=== PATIENT | male | born 1940 | race Caucasian/White ===

== ENCOUNTER 2017-07-04 06:39 | Observation (INO) ==
--- NOTE | 2017-07-03 21:48 | Discharge Summary ---
<Bryon Santos - Last Filed: 07/04/17 07:56> Date of Encounter: 07/04/17 - Discharge Diagnosis (1) Rotator cuff arthropathy Priority: Primary Status: Chronic Qualifiers: Laterality: right Qualified Code(s): M12.811 - Other specific arthropathies , not elsewhere classified, right shoulder (2) Status post total replacement of right shoulder Priority: Primary Status: Acute (3) HTN (hypertension) Priority: Secondary Status: Chronic Qualifiers: Hypertension type: essential hypertension Qualified Code(s): I10 - Essential (primary) hypertension (4) Obesity Priority: Secondary Status: Chronic Qualifiers: Obesity type: due to excess calories Obesity classification: adult class 1 (BMI 30 ? 34.9) Serious obesity comorbidity presence: without serious comorbidity Body mass index: BMI 34.0-34.9 Qualified Code(s): E66.09 - Other obesity due to excess calories - Discharge Medications Home Medications: OxyCODONE Immed Rel [Roxicodone 5 MG] 5 - 10 mg PO Q6HR PRN #40 tablet 07/03/17 [Rx] Acetaminophen [Tylenol] 325 mg PO Q3D 07/04/17 [History] Aspirin [Ecotrin] 325 mg PO Q3D 07/04/17 [History] Lisinopril [Zestril] 20 mg PO DAILY 07/04/17 [History] Multivitamin [One Daily Essential] 1 tab PO DAILY 07/04/17 [History] Naproxen Sodium [Aleve] 220 mg PO Q3D 07/04/17 [History] hydroCHLOROthiazide [Hydrochlorothiazide] 25 mg PO DAILY 07/04/17 [History] Allergies/Adverse Reactions: 3 Allergy/AdvReac Type Severity Reaction Status Date / Time No Known Allergies Allergy Verified 07/04/17 07:26 Primary care physician: Tanner Kenyon - Patient Status Disposition: Home Health Service Condition: Good - Discharge Instructions Follow Up With: Tanner Price, [employer] MA[employer]TENA[employer]CE [employer]CH[employer]IC [Primary Care Provider] - Additional Instructions: Discharge Instructions: Total Shoulder Please call [facility] ([phone]), your Primary Care Physician, or report to the Emergency Room if you have any of the following symptoms: Nausea, vomiting, fever greater that 101.5, swelling, chest pain, shortness of breath, increased pain/redness/drainage/odor for your incision site, numbness/ tingling, or any other concerning symptoms. ACTIVITY: Always keep your arm in the sling. Do not raise your arm away from your body. Do not use your arm to help with getting in or out of bed. No weight bearing permitted. Only perform those exercises given to you by your therapist. MEDICATIONS: Upon discharge resume your home medications. Take all the medications as prescribed. Take a stool softener if taking narcotic pain medications. Stool softeners are only effective if you drink enough fluids. Drink 6-8 glass of water or fluids a day, unless this is not allowed for another health problem. Despite using stool softeners, if you haven't had a bowel movement in 3 days, please switch to a gentle laxative. Gentle laxatives are sold over the counter. You should have a bowel movement within 24 hours, if not call the office. You will be discharged from the hospital with a prescription for pain medication. You are encouraged to decrease the use of narcotic pain medication as tolerated. Should you require a refill, please call the office. [facility] prescribes narcotic pain medication for only 4-6 weeks after surgery. If you require pain medication beyond this time period, you may be referred to your Primary Care Physician or to the Pain Clinic for further evaluation. Plan ahead for refills on pain medication as many narcotics either need to be picked up at the office or mailed. It is best to call 48-72 hours in advance of needing a prescription refill so you don't run out of medication. To help control the post-operative pain, you may take NSAIDs (Aleve,Advil, Motrin, Ibuprofen, Naprosyn) or Tylenol as prescribed on the bottle in addition to the pain medication. WOUND CARE: Leave the dressing on for 7-10 days. You may change the dressing if it becomes saturated greater than 50%. Do not get the dressing wet at anytime. Wash your hands with antibacterial soap, rinse and dry prior to any wound care. If you have von the visiting nurse or rehab facility can remove the stapes 10-14 days after surgery and place steri-strips across the wound. Leave the steri-strips in place until they fall off on their own. You may let water from the shower run on top of the steri-strips. If you do not have a visiting nurse or rehab facility, you will need to return to the office at 10-14 days for the von to be removed. If you have itching or redness around the dressing call the office. FOLLOW-UP: Please follow up with your surgeon in the orthopedic clinic, as scheduled - Hospital Course Hospital course: Mr. Liu is a 76 year old male - Time Spent with Patient Total time spent providing and/or coordinating discharge services: <Justine Peters - Last Filed: 07/15/17 13:01> Date of Encounter: 07/04/17 Time of Encounter: 13:01 - Discharge Diagnosis (1) Rotator cuff arthropathy Priority: Primary Status: Chronic Qualifiers: Laterality: right Qualified Code(s): M12.811 - Other specific arthropathies , not elsewhere classified, right shoulder (2) Status post total replacement of right shoulder Priority: Secondary Status: Acute (3) HTN (hypertension) Priority: Secondary Status: Chronic Qualifiers: Hypertension type: essential hypertension Qualified Code(s): I10 - Essential (primary) hypertension (4) Obesity Priority: Secondary Status: Chronic Qualifiers: Obesity type: due to excess calories Obesity classification: adult class 1 (BMI 30 ? 34.9) Serious obesity comorbidity presence: without serious comorbidity Body mass index: BMI 34.0-34.9 Primary care physician: Tanner Kenyon - Patient Status Functional capacity at discharge: independent ambulation Overall status at discharge: patient is back to baseline - Hospital Course Hospital course: Mr. Liu is a 76 year old male - Time Spent with Patient Total time spent providing and/or coordinating discharge services:
[2017-07-04] MEDS ORDERED: CeFAZolin Pre 2,000 MG/100 ML 2,000 MG/100 ML BAG IVPB ONE (07:27)
[2017-07-04] MEDS ORDERED: Lidocaine -MPF 1% 2 ML VIAL ID ONE (07:27)
[2017-07-04] MEDS ORDERED: Ringers Solution, Lactated 1,000 ML IVC SCH ×2 (07:30→10:56)
[2017-07-04] MEDS ORDERED: Lidocaine -MPF 4% 5 ML AMPUL ONE (07:51)
[2017-07-04] MEDS ORDERED: Ondansetron 4 MG/2 ML VIAL ONE (07:55)
[2017-07-04] MEDS ORDERED: Lidocaine -MPF 2% 2 ML VIAL ONE (07:55)
--- NOTE | 2017-07-04 07:56 | History & Physical Report ---
Date of Encounter: 07/04/17 Time of Encounter: 07:56 24 Hour HP Update - Instructions Instructions: If the History and Physical is less than 30 days old and was completed prior to A.M. admission and or procedure and has NOT been updated on calendar day of procedure please complete this update prior to performing procedure. - Update Patient reports changes in Medical Condition: No Changes in examination, assessment, or condition: No Changes in Medication: No Preop tests/diagnostics Reviewed: Yes Surgery Remains Indicated: Yes Consent for Planned Operative Procedure(s) Verified: Yes - Pre-Operative Checklist Preoperative Checklist Indicated: No Prophylactic Antibiotic Ordered: Yes Is VTE Prophylaxis Indicated?: Yes
[2017-07-04] MEDS ORDERED: *HR* FentaNYL (PF) 100 MCG/2 ML VIAL ONE (07:57)
[2017-07-04] MEDS ORDERED: *HR* Propofol 200 MG/20 ML VIAL IVP ONE (07:59)
[2017-07-04] MEDS ORDERED: *HR* Succinylcholine 200 MG/10 ML VIAL IVP ONE ×2 (07:59→08:01)
[2017-07-04] MEDS ORDERED: Dexamethasone 4 MG/ML VIAL ONE (08:01)
[2017-07-04] MEDS ORDERED: Bupivacaine/Clonidine Syringe 1 EACH SYRINGE ONE (08:08)
[2017-07-04] MEDS ORDERED: ROPIVACAINE HCL/PF 0.5% 30 ML VIAL ONE (08:08)
[2017-07-04] MEDS ORDERED: Lidocaine -MPF 1% 2 ML VIAL ONE (08:14)
--- NOTE | 2017-07-04 08:28 | Anesthesia Evaluation PreOp ---
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 Any Significant HX Other Medical History: Denies Any Significant HX Anesthesia History: No Prior Anesthetic Complications Alcohol Use: none Drug use: none Medications and Allergies OxyCODONE Immed Rel [Roxicodone 5 MG] 5 - 10 mg PO Q6HR PRN #40 tablet 07/03/17 [Rx] Acetaminophen [Tylenol] 325 mg PO Q3D 07/04/17 [History] Aspirin [Ecotrin] 325 mg PO Q3D 07/04/17 [History] Lisinopril [Zestril] 20 mg PO DAILY 07/04/17 [History] Multivitamin [One Daily Essential] 1 tab PO DAILY 07/04/17 [History] Naproxen Sodium [Aleve] 220 mg PO Q3D 07/04/17 [History] hydroCHLOROthiazide [Hydrochlorothiazide] 25 mg PO DAILY 07/04/17 [History] Allergies No Known Allergies Allergy (Verified 07/04/17 07:26) - Meds/Allergy Pre-op Review Medications Reviewed: Yes Allergies Reviewed: Yes Beta Blockers on Current Med List: No Anesthesia Results - Labs Laboratory Tests 06/20/17 06/20/17 06/20/17 10:10 10:10 10:10 WBC 8.3 Hgb 14.5 Hct 42.4 Plt Count 223 PT 11.9 INR 1.1 APTT 31.6 Sodium 140 Potassium 3.7 Chloride 104 Carbon Dioxide 26 BUN 18 Creatinine 1.39 H Est GFR ( Amer) > 60 Est GFR (Non-Af Amer) 50 L BUN/Creatinine Ratio 13 Glucose 115 H Calculated Osmolality 293 Calcium 9.6 - Imaging EKG: report reviewed, image reviewed (SINUS RHYTHM WITH FIRST DEGREE AV BLOCK SEPTAL MYOCARDIAL INFARCTION, PROBABLY OLD INFERIOR MYOCARDIAL INFARCTION, PROBABLY OLD) Anesthesia Exam Last Vital Signs Temp 98.2 F 07/04/17 07:06 Pulse 78 07/04/17 07:06 Resp 18 07/04/17 07:06 BP 147/75 07/04/17 07:06 Pulse Ox 93 07/04/17 07:06 Weight: 110 kg NPO (# of Hours): >> 8 hrs - HEENT Pupil (Motor): Pupils equal, EOMI Mallampati: II Teeth: Edentulous Oral Opening: Greater than 3 - WINDOW INSTALLER LOC: Oriented WINDOW INSTALLER Motor: Normal RUE, Normal LUE, Normal RLE, Normal LLE, Normal Face - Cardiac Rhythm: Regular Murmur: None - Pulmonary Breath Sounds: bilateral Clear Respiratory Effort: Symmetrical Anesthesia Assess/Plan ASA Score: 2 Modified [place] Scale for Level of Consciousness: Cooperative, oriented, and tranquil Anesthetic Plan: General, Regional Monitoring Plan: Standard Monitors Recovery Plan: PACU
[2017-07-04] MEDS ORDERED: *HR* Vasopressin 20 UNIT/ML VIAL ONE (08:34)
[2017-07-04] MEDS ORDERED: *HR* Labetalol 20 MG/4 ML SYRINGE IVP PRN (08:37)
[2017-07-04] MEDS ORDERED: *HR* HYDROmorphone (PF) 1 MG/ML SYRINGE IVP PRN ×2 (08:37→10:56)
[2017-07-04] MEDS ORDERED: Ondansetron 4 MG/2 ML VIAL IVP ONE (08:37)
[2017-07-04] MEDS ORDERED: *HR* Meperidine 25 MG/ML SYRINGE IVP PRN (08:37)
--- NOTE | 2017-07-04 08:59 | Anesthesia Procedures ---
Date of Encounter: 07/04/17 Time of Encounter: 08:45 Procedures: Anesthesia - Nerve Block Procedure Date: 07/04/17 Time: 08:45 Checklist: Correct Patient Identifier, Correct procedure, History checked Correct side: Right Blood Thinner: No Monitor Applied: EKG, BP, Pulse Oximetry Supplemental Oxygen via Nasal Cannula (L/min): 2 Sedation: Fentanyl (mcg): 100 Indication: Post Op Analgesia Pre-op Neuro Deficits: No Block Type: Supraclavicular, Other (ICB/ I. cervical plexus) Catheter placed: No Sterile Technique: Yes Ultrasound used: Yes Anatomy identified: Yes Visual spread of Local: Yes Neuro Stimulation: Yes Blood on Needle Aspiration: No Smooth Injection of Local: Yes Pain with Injection of Local: No Prep: Chlorhexadine Needle: 22 x 50 mm Stimuplex Local: 0.25% Bupivicaine w/Clonidine 20 mcg/cc (15 ml used), Ropivacaine (0.5% with decadron 30 ml) Volume (cc): 45 total Number of Attempts: 1 Complications: None/effective block Vitals: VSS
[2017-07-04] MEDS ORDERED: EPHEDrine 50 MG/ML VIAL ONE (09:19)
--- NOTE | 2017-07-04 09:26 | Anesthesia Procedures ---
Date of Encounter: 07/04/17
--- NOTE | 2017-07-04 09:51 | Orthopedic Operative Note ---
Date of procedure: 07/04/17 Pre-op diagnosis: Right shoulder cuff tear arthropathy Post-op diagnosis: same Procedure: Procedure: Total Shoulder Replacment Reverse, right Estimated blood loss: 100 cc Hardware: Metal and polyethylene replacement: Arthrex large glenoid baseplate, 2 4.5 screws. 1 6.5 screw, 42+4 glenosphere, 13 humeral stem, poly insert 3 Exam Under anesthesia: Full motion and no instability Procedural Notes: Irreparable tear supraspinatus tendon. Operative procedure: The patient was brought to the operating room and placed on the operating room table. After general anesthesia was administered the operative shoulder was examined. Findings were noted. The patient was placed in the modified beachchair position. All pressure points were padded appropriately. And the head was stabilized in the neutral position. The operative extremity was prepped and draped in the sterile surgical fashion. The patient received IV antibiotics prior to skin incision. A standard deltopectoral approach was made to the operative shoulder. Incision was made to the skin and subcutaneous tissue,hemo stasis was obtained with Bovie cautery. Using careful blunt dissection the cephalic vein was identified and mobilized medially. The deltopectoral interval was developed and the clavipectoral fascia was incised. The subscap was released off the lesser tuberosity and tagged with #2 FiberWire suture subscap was irreparable. The humerus was dislocated patient noted to have irreparable tear supraspinatus tendon, and the humeral cut was made along the anatomic neck. Anterior and posterior Bankart retractors were placed to expose the glenoid. The glenoid guide was seated and the centering hole was made. It was reamed with the appropriate reamer. The large baseplate was seated and secured with (2) 4.5 screws and one 6.5 screw. The baseplate was irrigated and dried and the 2+4 Glenosphere was seated and secured with the Solis taper. The Solis taper was tested and found to be secure the humerus was redislocated and prepared with the diaphyseal reamers, followed by a broaching process up to the appropriate size 13 in the patient's anatomic version. The metaphyseal reamer was then utilized. Trial reduction found the shoulder to be relocatable. Trial components were removed. ] The appropriate 13 stem was impacted in place in the patient's anatomic version. Trial reduction found the shoulder to be relocatable and stable with the appropriate 3. Trial component was removed and the real 3 Carine was seated and secured the shoulder was reduced. The shoulder had excellent motion and excellent stability and no evidence of dislocation. The deep tissue was irrigated with pulse irrigation. The PA closed the shoulder. The deltopectoral interval was closed with a running #1 PDS suture, subcutaneous tissue was irrigated and closed with 0 PDS suture, the skin was closed with Dermabond. The patient was placed in a sterile dressing, abduction brace and extubated. The patient was then transferred to the recovery room in stable condition. Anesthesia: BRIAN Surgeon: Bryon Santos Tankerman: Dorie Youssef Condition: stable Disposition: PACU
--- NOTE | 2017-07-04 10:35 | Anesthesia Evaluation Post Op ---
Date of Encounter: 07/04/17 Time of Encounter: 10:35 - Vital Signs Vital Signs: Vital Signs/O2 Sat, Most Current Temp Pulse Resp BP Pulse Ox 97.7 F 92 16 130/78 92 07/04/17 10:10 07/04/17 10:30 07/04/17 10:30 07/04/17 10:30 07/04/17 10:30 - Lungs Lungs: Clear Ascult./Percussion - Airway Airway: Non-obstructed - Cardiovascular Regular Rate - Pain Pain Scale: 0 Pain Scale used: Numeric (1 - 10) - Nausea Vomiting Nausea Vomiting: Not Present - Hydration Hydration: Tolerates oral liquids, Has not voided - Discharge PostOp Status: Transfer Patient to floor
[2017-07-04 10:42] LABS: Hematocrit 39.9 % (37.5-50.1)
[2017-07-04] MEDS ORDERED: Lisinopril 20 MG TABLET PO SCH (10:56)
[2017-07-04] MEDS ORDERED: Multivit/Ca/Min/Fe/FA 1 TAB TABLET PO SCH (10:56)
[2017-07-04] MEDS ORDERED: Acetaminophen 325 MG TABLET PO SCH (10:56)
[2017-07-04] MEDS ORDERED: *HR* OxyCODONE Immed Rel 5 MG TABLET PO PRN ×2 (10:56)
[2017-07-04] MEDS ORDERED: hydroCHLOROthiazide 25 MG TABLET PO SCH (10:56)
[2017-07-04] MEDS ORDERED: MOM Conc 10 ML UD.LIQ PO PRN (10:56)
[2017-07-04] MEDS ORDERED: Naloxone 0.4 MG/ML INJ IVP PRN (10:56)
[2017-07-04] MEDS ORDERED: Sennosides 8.6 MG TABLET PO PRN (10:56)
[2017-07-04] MEDS ORDERED: Ondansetron 4 MG/2 ML VIAL IVP PRN (10:56)
[2017-07-04] MEDS ORDERED: Aspirin Enteric Coated 325 MG Tablet PO SCH (10:56)
--- NOTE | 2017-07-04 11:12 | Physician Discharge Referral ---
Home Health/Hosp Referral Info Transfer to: Home Health Attending Provider: Provider in Charge Post Discharge: PCP - Diagnosis (1) Rotator cuff arthropathy Priority: Primary Status: Chronic (2) Status post total replacement of right shoulder Priority: Primary Status: Acute (3) HTN (hypertension) Priority: Secondary Status: Chronic (4) Obesity Priority: Secondary Status: Chronic - Respiratory Orders None Smoking Cessation: Smoking cessation has been advised. For more information, call the [place] Tobacco Quit Line at 7-241-WALZ-NOW. - Dressing/Wound Care Site: Right Shoulder Type of Dressing/Treatments w/Frequency: Opsite dressing, leave intact until first post-operative visit. If dressing becomes >50% saturated, contact office, remove dressing and place appropriate dressing in its place. Do not allow for dressing to get wet. - Diet/Nutrition Diet/Nutrition Orders: Regular - Activity Activity Orders: Up ad ulises, Ambulate - Services Needed Following services are medically necessary services: Nursing, Home Health Aide, Physical Therapy, Occupational Therapy Other Treatments: PT: Precautions x 6 weeks Apply cold therapy wrap 3-6x/day for 20 minutes at a time. Encourage ambulation throughout the day and incentive spirometer 10x/hour. Elevate affected extremity above heart as tolerated. Brace: Continue in Arm slingshot and physical therapy. Follow Total Shoulder precautions x 6 weeks. No lifting/pulling or pushing. - Transfer Medications Home Medications: OxyCODONE Immed Rel [Roxicodone 5 MG] 5 - 10 mg PO Q6HR PRN #40 tablet 07/03/17 [Rx] Acetaminophen [Tylenol] 325 mg PO Q3D 07/04/17 [History] Aspirin [Ecotrin] 325 mg PO Q3D 07/04/17 [History] Lisinopril [Zestril] 20 mg PO DAILY 07/04/17 [History] Multivitamin [One Daily Essential] 1 tab PO DAILY 07/04/17 [History] Naproxen Sodium [Aleve] 220 mg PO Q3D 07/04/17 [History] hydroCHLOROthiazide [Hydrochlorothiazide] 25 mg PO DAILY 07/04/17 [History] Allergies/Adverse Reactions: Allergies No Known Allergies Allergy (Verified 07/04/17 07:26) Certification: Further, I certify that my clinical findings support that this patient is homebound (i.e. absences from home require considerable and taxing effort and are for medical reasons or church services or infrequently or short duration when for other reasons) because: Homebound Reason: Post-surgery restriction and or conditions limit ability to leave home Attestation: My signature below is to certify that this patient is under my care and that I, or nurse practitioner, or a physician's press operator assistant working with me, has a face-to -face encounter with this patient.
[2017-07-04 14:25] VITALS: BP 137/83
[2017-07-04] MEDS ORDERED: *HR* Enoxaparin 30 MG/0.3 ML SYRINGE SQ ONE (15:39)
[2017-07-04] MEDS ORDERED: ceFAZolin 2,000 MG in D5% in Water 100 ML IVPB SCH (17:00)
[2017-07-04] MEDS ORDERED: *HR* Enoxaparin 30 MG/0.3 ML SYRINGE SQ SCH ×2 (18:00)
[2017-07-04] MEDS ORDERED: Temazepam 15 MG CAPSULE PO PRN (21:00)
== END 2017-07-04 17:12 | disposition home health service (06) | DRG 483 ==
LOC: SAMDAY 06:39 → INTOOBSV 10:52 → 3NENU 10:52
PROVIDERS: ADMIT Orthopaedic Surgery; ATTEND Orthopaedic Surgery